=== PATIENT | male | born 1960 | race Caucasian/White ===

== ENCOUNTER 2023-10-03 08:07 | Day surgery (SDC) | payer MEDICARE, OTHER, SELFPAY ==
[2023-10-03] VITALS (10 sets, daily range): BP systolic 100–123; BP diastolic 71–91; BMI 38.4
[2023-10-03 08:55] LABS: Hematocrit 46.2 % (39.0-52.0); Mean Corp Hgb Conc. 34.6 g/dL (33.0-37.0); Mean Corpuscular Hgb 31.4 pg (27.0-31.0); Mean Corpuscular Volume 90.6 fL (80.0-94.0); Platelet Count 186 10^3/uL (130-400); Red Cell Dist. Width 13.5 % (11.5-14.5); White Blood Cell Count 7.2 10^3/uL (4.8-10.8)
[2023-10-03 09:04] LABS: Glucose - Point of Care 120 mg/dl (70-99)
[2023-10-03 09:06] LABS: INR 1.02; PT 13.4 Sec (11.4-14.6)
[2023-10-03 09:08] LABS: ALT (SGPT) 26 U/L (0-50); AST (SGOT) 29 U/L (17-59); Albumin 4.1 g/dl (3.5-5.0); Alkaline Phosphatase 70 U/L (38-126); Blood Urea Nitrogen 11 mg/dl (9-20); Calcium 9.1 mg/dl (8.4-10.2); Carbon Dioxide 25 mmol/L (22-30); Chloride 109 mmol/L (98-107); Estimated Creatinine Clearance > 125 ml/min; Glucose 128 mg/dl (70-99); Potassium 4.2 mmol/L (3.5-5.1); Sodium 140 mmol/L (135-145); Total Bilirubin 0.8 mg/dl (0.2-1.3); Total Protein 6.5 g/dl (6.3-8.2); eGFR > 60.00
[2023-10-03] MEDS: TYLENOL 1000 MG PO (09:31)
--- NOTE | 2023-10-03 09:55 | PTCARENOTE ---
Pt here for VT ablation. Pt in chronic afib and takes eliquis. Last dose of eliquis was 09/30/[address] Bee made aware. No further treatment ordered at this time.
[2023-10-03 11:41] LABS: ACT-LR - POC 295 Seconds (116-155)
[2023-10-03 12:02] LABS: ACT-LR - POC 258 Seconds (116-155)
[2023-10-03 12:28] LABS: ACT-LR - POC 273 Seconds (116-155)
[2023-10-03 13:02] LABS: ACT-LR - POC 300 Seconds (116-155)
--- NOTE | 2023-10-03 13:17 | ITS.CL.ABL ---
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
Ablation
Procedure Report:
ELECTROPHYSIOLOGY ABLATION REPORT
Date of Procedure: October 03, 2023
Referring: Dr. NANDA Reihc
INDICATION: Greater than 10% PVC burden with history of PVC related cardiomyopathy
HISTORY: As above. He has a history of permanent atrial fibrillation and coronary artery disease status post coronary stent and is on novel oral anticoagulation for his atrial fibrillation. He held his oral anticoagulation in anticipation of
arterial access for 48 hours preprocedure.
PROCEDURE:
After informed consent and patient safety timeout the patient was sedated by the anesthesiology service. Clinical PVCs on our twelve-lead monitor were right bundle right inferior positive throughout the precordium with a subtle variant having a
slight Q wave in V1 suggesting LV summit�AMC morphology. Once sedated we performed ultrasound-guided access of the right femoral artery with initial 5 Martiniquais short sheath which was upgraded to a 9 Martiniquais long sheath. This was done over a long wire
and ultrasound and fluoroscopic guidance. The left femoral vein was accessed with a 7 Martiniquais and 9 Martiniquais sheath and a decapolar catheter was brought to the coronary sinus for atrial and ventricular pacing as well as intracardiac ultrasound which
demonstrated normal ejection fraction 55% without focal regional wall motion abnormality and no pericardial effusion pre or post procedure. There is no aortic rotation. Post procedure. The left ventricle was mapped via retrograde aortic approach.
3D mapping with [employer] mapping system was utilized. We mapped the left ventricle retrograde with the 4 mm tactic cath catheter. Intracardiac ultrasound was utilized for monitoring of complications, to image the left and right coronary arteries and
to monitor for lesion formation in the aorto mitral continuity, and the coronary Sinus.
Sheaths were placed and IV heparin bolus followed by continuous infusion to maintain ACT at 250-350 seconds.
There is a large posterolateral branch of the coronary sinus which we utilized for decapolar catheter placement although we could not advance the catheter up into the anterior interventricular vein for activation mapping. Local activation mapping
in the posterior lateral branch was late compared to the patient's clinical PVC.
Once entering the left ventricle the aortic cusps, left ventricular outflow tract, and mitral valve annulus at the LV summit activation mapped endocardially. The left main coronary artery was tagged. The His bundle was also tagged and marked on
the 3D mapping system. Patient had frequent PVCs at baseline and activation mapping demonstrated the area of earliest activation to be 26 to 30 ms presurface QRS locally although somewhat diffuse in the aorto mitral continuity. Local unipolar
recordings demonstrated a QS pattern. Ablation in this region immediately suppressed the PVC although reliably the PVC returned after approximately 90 seconds with ablation in this region at 30 W, 42 degrees and up to 20 seconds with a Target force
of 10 to 20 g. With suppression but recurrence we varied the ablation from 20 to 40 W at 10 to 20 g force and longer lesions for up to 45-second lesions and can suppress the clinical PVC for approximately 5 to 10 minutes. With recurrence the
frequency was much less. Additional consolidation lesions were given in the left coronary cusp with direct imaging of the left main coronary artery and the ablation catheter was greater than 1 cm.
During the waiting period we performed EP study with 600 singles, doubles and triples as well as 400 singles and doubles from the left ventricle as well as pacing from the epicardial coronary sinus and the posterolateral branch and the patient was
noninducible for any sustained arrhythmia. After EP study we then as above performed consolidation lesions in the region of suppression and heparin was turned off. We maintained an ACT of 250 to 350 seconds throughout the procedure. There is no
pericardial effusion post ablation and there was no mitral rotation rate of regurgitation noted. The procedure was performed under conscious sedation and the patient tolerated the procedure well. Once sheath and catheters were removed from the
left ventricle heparin was turned off and 35 mg of protamine was given. The venous sheaths in the left femoral vein were removed and a [id number] stitch was utilized for hemostasis. For the right femoral arterial stick 30 to 45 minutes of
manual pressure was held for local hemostasis at the site. 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
At the end of procedure we noted a marked reduction in the patient's clinical PVCs and we will repeat monitoring in 4 to 6 weeks after healing phase. Patient will be transferred for overnight monitoring to the IVU. He will resume his apixaban the
morning of October 03.
COMPLICATIONS: None
SUMMARY: Status post targeting of an LV summit PVC above the aorto mitral continuity as above. Noninducible for sustained VT.
RECOMMENDATIONS:
1. Resume apixaban tomorrow morning as well as the other cardiac medications. Would continue Coreg at current dose
2. Would perform monitoring for PVC burden in 6 to 8 weeks and communicate this finding with Dr. Reich. Given his level of symptoms and normal ejection fraction would continue current therapies and could consider antiarrhythmic drug therapy if
further PVC suppression is warranted.
Copy to: Dr. NANDA Reich
[2023-10-03 13:20] LABS: ACT-LR - POC 176 Seconds (116-155)
[2023-10-03 14:38] LABS: Glucose - Point of Care 111 mg/dl (70-99)
--- NOTE | 2023-10-03 15:03 | CM ---
Chart reviewed. Patient is independent of ADLS, lives with his in a 2 [address], 0 DME. Plan is for the patient to return home. CM to follow
[2023-10-03 15:45] LABS: ACT-LR - POC > 397 Seconds (116-155)
[2023-10-03] MEDS: TYLENOL 650 MG PO (16:53)
[2023-10-03] MEDS: CRESTOR 40 MG PO (17:50)
[2023-10-03] MEDS: ENTRESTO 24 MG/26 MG 1 TAB PO (19:58)
[2023-10-03] MEDS: COREG 12.5 MG PO (19:58)
--- NOTE | 2023-10-03 23:47 | PTCARENOTE ---
Pt received at start of shift, HR SB w/ BBB and PVCs 80s-90s. B/l groin sites CDI, no hematoma. Pt up and ambulating w/o assistance. Pt voiding well. Educated pt on plan of care, pt states no questions at this time. Pt refusing CPAP for sleep apnea
while at hospital, agreed to 2L NC overnight. Pt denies any CP, SOB, lightheadedness/dizziness at this time. Informed to notify RN if any changes, call salazar within reach.
[2023-10-04 02:25] VITALS: BP 117/81
[2023-10-04 03:21] LABS: Hematocrit 44.1 % (39.0-52.0); Hemoglobin 15.2 g/dL (13.0-18.0); Mean Corp Hgb Conc. 34.5 g/dL (33.0-37.0); Mean Corpuscular Hgb 31.4 pg (27.0-31.0); Mean Corpuscular Volume 91.1 fL (80.0-94.0); Mean Platelet Volume 9.9 fL (7.4-10.4); Platelet Count 190 10^3/uL (130-400); Red Blood Cell Count 4.84 10^6/uL (4.70-6.10); Red Cell Dist. Width 13.5 % (11.5-14.5); White Blood Cell Count 11.8 10^3/uL (4.8-10.8)
[2023-10-04 03:46] LABS: Blood Urea Nitrogen 12 mg/dl (9-20); Calcium 9.3 mg/dl (8.4-10.2); Carbon Dioxide 27 mmol/L (22-30); Chloride 104 mmol/L (98-107); Estimated Creatinine Clearance > 125 ml/min; Glucose 128 mg/dl (70-99); Magnesium 2.3 mg/dl (1.6-2.3); Potassium 4.4 mmol/L (3.5-5.1); Sodium 142 mmol/L (135-145); eGFR > 60.00
[2023-10-04 06:40] VITALS: BP 94/69
[2023-10-04] MEDS: COREG 12.5 MG PO (07:47)
[2023-10-04] MEDS: PLAVIX 75 MG PO (07:47)
[2023-10-04] MEDS: JARDIANCE 25 MG PO (07:47)
[2023-10-04] MEDS: ENTRESTO 24 MG/26 MG 1 TAB PO (07:47)
[2023-10-04 07:49] VITALS: BP 112/76
--- NOTE | 2023-10-04 08:05 | W.PN.CARDCBS ---
Addendum entered and electronically signed by Stone Bee MD 10/04/23 09:55:
Patient seen and examined
Agree with PLUMBER APPRENTICE note and plan
Agree with PLUMBER APPRENTICE assessment
Exam:
Right groin clean dry and intact
Telemetry with rare PVCs
Underlying atrial fibrillation
Cor irregularly irregular no murmur
Lungs clear
Clear to auscultation bilaterally
Abdomen soft obese nontender
Alert and x 3
Nonfocal neurologically
63 y/o, presents with greater than 10% PVC burden and NSVT, with history of PVC related cardiomyopathy, EF 50-55%, as well as permanent AF and CAD w/multiple prior PCI, most recent 02/2023.
S/P PVC ablation.
IMPRESSION:
PVC/NSVT
s/p PVC ablation, 10/03/23
Cardiomyopathy
Chronic diastolic HFpEF 50-55%
CAD w/remote NE
prox LAD VICTORINO (2003), mid LAD VICTORINO (2011), mid LAD VICTORINO (2016), prox LCx VICTORINO (02/2023)
residual apical LAD disease, medical management
HTN
HLD
DM
CHAPARRO
LBBB
AFib
COPD/Asthma
PLAN:
Tele- AFib w/freq PVC, bigeminy, controlled rates 80s
Bilat groin sites stable
Resume eliquis, plavix today
continue coreg 12.5 BID
Outpt monitoring for PVC burden in 6-8 weeks per primary cards
If further PVC suppression indicated, would consider antiarrythmic drug therapy
OOB ambulating
followup with Dr. Reich as scheduled
home today
Original Note:
Today's Communication / Plan
-
outpt monitoring in 6-8 weeks
resume eliquis, plavix today
home today
Impression / Plan
-
PCP: Joseph Rosa MD
CDY: Yulissa Reich MD
63 y/o, presents with greater than 10% PVC burden and NSVT, with history of PVC related cardiomyopathy, EF 50-55%, as well as permanent AF and CAD w/multiple prior PCI, most recent 02/2023.
S/P PVC ablation.
IMPRESSION:
PVC/NSVT
s/p PVC ablation, 10/03/23
Cardiomyopathy
Chronic diastolic HFpEF 50-55%
CAD w/remote NE
prox LAD VICTORINO (2003), mid LAD VICTORINO (2011), mid LAD VICTORINO (2016), prox LCx VICTORINO (02/2023)
residual apical LAD disease, medical management
HTN
HLD
DM
CHAPARRO
LBBB
AFib
COPD/Asthma
PLAN:
Tele- AFib w/freq PVC, bigeminy, controlled rates 80s
Bilat groin sites stable
Resume eliquis, plavix today
continue coreg 12.5 BID
Outpt monitoring for PVC burden in 6-8 weeks per primary cards
If further PVC suppression indicated, would consider antiarrythmic drug therapy
OOB ambulating
followup with Dr. Reich as scheduled
home today
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
Subjective
Date of Service: October 04, 2023
Denies cp/palps/dyspnea
oob ambulating
groin sites without pain
Objective
Labs:
10/04/23 02:35
10/04/23 02:35
Labs
Hgb 15.2 g/dL (13.0-18.0) 10/04/23 02:35
Hct 44.1 % (39.0-52.0) 10/04/23 02:35
Plt Count 190 10^3/uL (130-400) 10/04/23 02:35
PT 13.4 Sec (11.4-14.6) 10/03/23 08:26
INR 1.02 10/03/23 08:26
Sodium 142 mmol/L (135-145) 10/04/23 02:35
Potassium 4.4 mmol/L (3.5-5.1) 10/04/23 02:35
BUN 12 mg/dl (9-20) 10/04/23 02:35
Creatinine 0.6 mg/dL (0.7-1.3) L 10/04/23 02:35
Glucose 128 mg/dl (70-99) H 10/04/23 02:35
Vital Signs and I&O:
Vital Signs
Temp Pulse Resp BP Pulse Ox
97.4 F 82 14 94/69 95
10/04/23 06:37 10/04/23 07:00 10/04/23 06:37 10/04/23 06:40 10/04/23 06:37
Vital Signs
Temp Pulse Resp BP Pulse Ox
97.4 F 82 14 94/69 95
10/04/23 06:37 10/04/23 07:00 10/04/23 06:37 10/04/23 06:40 10/04/23 06:37
Intake & Output
10/02/23 10/03/23 10/04/23 10/05/23
06:59 06:59 06:59 06:59
Intake Total 720 / 720
Output Total 200 / 200
Balance 720 / 720 -200 / -200
Physical Exam
Physical Exam
AAOx3, MAEE 5/5
Irreg irreg S1 S2, no murmurs
CTA bilat, non labored
soft abd, + bs
bilat groin sites without ht/bleeding, non tender
bilat extremities w/palpable distal pulses, no edema
--- NOTE | 2023-10-04 10:14 | W.DS.TRANS ---
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
-
Discharge Instructions:
Discharge Diagnosis/Procedures PVC/NSVT, post ablation
Diet Low Cholesterol,2 Gram Sodium
Driving Restrictions No driving for 24 hours
Others Tests You should have another holter monitor in the
next 6-[address] Reich can set this up as
outpt.
Specialty Instructions Weigh Daily
Instructions:
Stand-Alone Forms: DC Instructions- Cath/EP Lab
Changes to Home Medications: No
Discharge Medications:
DC Medications w/original date entered in [employer]
Pataday 1 drp BOTH EYES DAILYPRN PRN allergies 10/03/23
apixaban 5 mg tablet (Eliquis) 5 mg PO BID 10/03/23
azelastine 137 mcg (0.1 %) nasal spray aerosol 1 spray intranasal BIDPRN PRN allergies 10/03/23
carvedilol 12.5 mg tablet 12.5 mg PO BID 10/03/23
clopidogrel 75 mg tablet (Plavix) 75 mg PO DAILY 10/03/23
dulaglutide 1.5 mg/0.5 mL subcutaneous pen injector (Trulicity) 1.5 mg SC QWEEK 10/03/23
empagliflozin 25 mg tablet (Jardiance) 25 mg PO DAILY 10/03/23
ergocalciferol (vitamin D2) 1,250 mcg (50,000 unit) capsule (Vitamin D2) 1,250 mcg PO .ONCE EVERY 5 DAYS 10/03/23
evolocumab 140 mg/mL subcutaneous syringe (Repatha Syringe) 140 mg SC Q2W 10/03/23
fluticasone propionate 1 spray inhalation BIDPRN PRN allergies 10/03/23
furosemide 20 mg tablet 20 mg PO Q OTHER DAY 10/03/23
levocetirizine 5 mg tablet (Xyzal) 5 mg PO QPMPRN PRN allergies 10/03/23
montelukast 10 mg tablet (Singulair) 10 mg PO QPMPRN PRN allergies 10/03/23
multivitamin with minerals-folic acid 200 mcg chewable tablet (Multivitamin Gummies) 2 tab PO DAILY 10/03/23
nitroglycerin 0.4 mg sublingual tablet 0.4 mg sublingual Q5-15M PRN chest pain 10/03/23
rosuvastatin 40 mg tablet 40 mg PO QPM 10/03/23
sacubitril 24 mg-valsartan 26 mg tablet (Entresto) 1 tab PO BID 10/03/23
sildenafil 100 mg tablet 100 mg PO DAILY PRN ED 10/03/23
vitamin E 400 unit tablet 45 mg PO BID 10/03/23
Home Medication Changes
Pending Results: No
== END 2023-10-04 12:05 | disposition home or self-care (01) ==
LOC: CATH 08:07
PROVIDERS: Nurse Practitioner Adult Health; ATTENDING PHYSICIAN Internal Medicine Cardiovascular Disease; FAMILY PHYSICIAN Family Medicine; OTHER PHYSICIAN Internal Medicine Interventional Cardiology
DX: I47.20 Ventricular tachycardia, unspecified (principal); I44.7 Left bundle-branch block, unspecified; I11.0 Hypertensive heart disease with heart failure; I50.32 Chronic diastolic (congestive) heart failure; I25.10 Atherosclerotic heart disease of native coronary artery without angina pectoris; I25.2 Old myocardial infarction; Z95.5 Presence of coronary angioplasty implant and graft; E78.5 Hyperlipidemia, unspecified; E11.9 Type 2 diabetes mellitus without complications; G47.33 Obstructive sleep apnea (adult) (pediatric); I48.21 Permanent atrial fibrillation; J44.89 Other specified chronic obstructive pulmonary disease; I42.8 Other cardiomyopathies; Z79.01 Long term (current) use of anticoagulants; Z79.02 Long term (current) use of antithrombotics/antiplatelets; I42.9 Cardiomyopathy, unspecified
CPT/HCPCS: 93662; C1730; C1769; C2630; C1759; C1892; C1894; 76937; 80048; 80053; 82962; 83735; 85027; 85347; 85610; 86850; 86900; 86901; 93005; 93654